=== PATIENT | male | born 1960 | race Caucasian/White ===

== ENCOUNTER 2023-05-29 13:46 | Outpatient (CLI) | payer OTHER, SELFPAY ==
--- NOTE | 2023-05-29 13:53 | MR_ITS ---
WS: [id number] MRI CERVICAL SPINE NONCONTRAST HISTORY: CERVICAL SPONDYLOSIS W/RADICULOPATHY COMPARISON: None available. Technique: Multiplanar, multisequence noncontrast imaging of the cervical spine. 2 mm retrolisthesis of C5. Otherwise alignment is normal. Disc spaces are mildly narrowed. Signal within the cervical cord is normal. Visualized posterior fossa is unremarkable. Craniocervical junction, C1 and C2 relationship, odontoid process and soft tissues are normal. C2-C3: Normal. C3-C4: Shallow central disc protrusion with mild osteophytic ridging. No stenosis. C4-C5: Shallow central disc protrusion and osteophytic ridging. Mild facet arthritis. Small RIGHT for aminal disc osteophyte complex. Mild to moderate RIGHT foraminal stenosis. C5-C6: Shallow central disc protrusion. No central stenosis. Bilateral foraminal osteophytes, RIGHT g reater than LEFT. Mild RIGHT foraminal stenosis. C6-C7: Small foraminal osteophytes. No stenosis. C7-T1: Normal. Paraspinal soft tissue are normal. IMPRESSION: 1. No high-grade central cervical stenosis. 2. Shallow central disc protrusions at C3-4, C4-5 and C5-6. 3. C4-5: Mild to moderate RIGHT foraminal stenosis due to osteophyte. Mild RIGHT foraminal stenosis at C5-6 due to osteophytes. Additional foraminal osteophytes without stenosis.
== END 2023-05-29 13:47 | disposition home or self-care (01) ==
LOC: RAD 13:49
PROVIDERS: Visit Provider General Practice
DX: M47.22 Other spondylosis with radiculopathy, cervical region (principal); M48.02 Spinal stenosis, cervical region; M50.222 Other cervical disc displacement at C5-C6 level; M25.78 Osteophyte, vertebrae
CPT/HCPCS: 72141